=== PATIENT | male | born 1940 | race African-American/Black ===

== ENCOUNTER 2021-08-17 08:30 | Inpatient (IN) | payer MEDICARE ==
[2021-08-17 08:58] LABS: #Basophils 0.1 10x3/uL (0.0-0.2); #Eosinphils 0.1 10x3/uL (0.0-0.5); #Monocytes 0.9 10x3/uL (0.0-1.1); #Neutrophils 6.3 10x3/uL (1.5-8.4); %Basophils 0.6 % (0.0-2.0); %Eosinophils 1.3 % (0.0-6.0); %Lymphocytes 16.4 % (18.0-47.0); %Monocytes 9.7 % (0.0-10.0); %Neutrophils 71.8 % (40.0-75.0); Mean Corpuscular Volume 90.8 fl (81.2-95.1); Mean Platelet Volume 9.5 fl (7.4-10.4); Platelet Count 253 10x3/uL (150-450); RBC Distribution Width 14.6 % (11.5-14.5); White Blood Cell (WBC) Count 8.7 10x3/uL (3.5-10.5)
[2021-08-17 09:18] LABS: ALT (SGPT) 31 U/L (8-55); AST (SGOT) 23 U/L (5-34); Albumin 4.3 g/dL (3.4-4.8); Alkaline Phosphatase 78 U/L (40-110); Anion Gap 14 mmol/L (10-20); BUN (Urea Nitrogen) 12 mg/dL (8.4-25.7); Bilirubin, Total 0.5 mg/dL (0.2-1.2); Calc. Creatinine Clearance 0 mL/min (70-130); Carbon Dioxide 23 mmol/L (23-31); Chloride 107 mmol/L (98-107); Globulin 2.8 g/dL (2.4-3.5); Glucose 112 mg/dL (83-110); Potassium 4.7 mmol/L (3.5-5.1); Protein, Total 7.1 g/dL (5.8-8.1); Sodium 139 mmol/L (136-145)
[2021-08-17 09:37] LABS: CKMB 4.8 ng/mL (0-6.6)
[2021-08-17] MEDS ORDERED: Aspirin Chewable 81 MG TAB ONE (09:56)
[2021-08-17] MEDS ORDERED: Acetaminophen 650 MG Suppository PR PRN (11:50)
[2021-08-17] MEDS ORDERED: Nitroglycerin 0.4 MG TAB (25 Tab Bottle) SL PRN (11:50)
[2021-08-17] MEDS ORDERED: Ondansetron PF 4 MG/2 ML Vial IVP PRN (11:50)
[2021-08-17] MEDS ORDERED: Ondansetron ODT 4 MG TAB PO PRN (11:50)
[2021-08-17] MEDS ORDERED: Acetaminophen 325 MG TAB PO PRN (11:50)
[2021-08-17] MEDS ORDERED: Aspirin 325 MG TAB PO SCH (12:00)
[2021-08-17 12:12] VITALS: BMI 30.4
[2021-08-17 12:37] LABS: Troponin I 0.614 ng/mL (< 0.028)
[2021-08-17] MEDS ORDERED: FLU VACC QS2021-22(65YR UP)/PF 240 MCG/0.7 ML SYRINGE IM ONE (13:00)
[2021-08-17 15:43] LABS: SARS-CoV-2 NAA Rapid Test Not Detected (NotDetected)
[2021-08-17 15:59] LABS: Troponin I 0.989 ng/mL (< 0.028)
[2021-08-17] MEDS ORDERED: Communication Order-Pharmacy FS SCH (16:13)
[2021-08-17] MEDS ORDERED: Enoxaparin Sodium 100 MG/ML SYRINGE SC SCH (16:30)
[2021-08-17] MEDS ORDERED: Enoxaparin Sodium 80 MG/0.8 ML SYRINGE SC SCH (21:00)
[2021-08-18 04:40] LABS: #Basophils 0.1 10x3/uL (0.0-0.2); #Eosinphils 0.4 10x3/uL (0.0-0.5); #Monocytes 0.9 10x3/uL (0.0-1.1); #Neutrophils 5.8 10x3/uL (1.5-8.4); %Basophils 0.5 % (0.0-2.0); %Eosinophils 4.6 % (0.0-6.0); %Lymphocytes 24.2 % (18.0-47.0); %Monocytes 9.8 % (0.0-10.0); %Neutrophils 60.6 % (40.0-75.0); Hemoglobin 14.5 g/dL (13.5-17.5); Mean Corpuscular HGB CONC 33.4 g/dL (32.0-36.0); Mean Corpuscular Hemoglobin 30.1 pg (27.0-33.0); Mean Platelet Volume 9.8 fl (7.4-10.4); Platelet Count 248 10x3/uL (150-450); RBC Distribution Width 14.5 % (11.5-14.5); Red Blood Cell (RBC) Count 4.82 10x6/uL (4.32-5.72); White Blood Cell (WBC) Count 9.6 10x3/uL (3.5-10.5)
[2021-08-18 04:50] LABS: Anion Gap 14 mmol/L (10-20); BUN (Urea Nitrogen) 13 mg/dL (8.4-25.7); Calc. Creatinine Clearance 70 mL/min (70-130); Calcium 8.9 mg/dL (7.8-10.44); Carbon Dioxide 25 mmol/L (23-31); Cardiac Risk 4.4 (Less than 4.5); Chloride 107 mmol/L (98-107); Cholesterol 159 mg/dl (< 200 Desired); Glucose 106 mg/dL (83-110); HDL Cholesterol 36 mg/dL (>60 Neg Risk); LDL Cholesterol, Calculated 102 mg/dL; Potassium 4.6 mmol/L (3.5-5.1); Sodium 141 mmol/L (136-145); Triglycerides 107 mg/dL (Less than 150)
[2021-08-18] MEDS ORDERED: Aspirin Chewable 81 MG TAB PO SCH (05:45)
[2021-08-18] MEDS ORDERED: Sodium Chloride 0.9% 1,000 ML IV SCH (06:00)
[2021-08-18] MEDS ORDERED: Adenosine 6 MG/2 ML VIAL ONE (08:56)
[2021-08-18] MEDS ORDERED: Heparin 10,000 UNITS/ 10 ML VIAL ONE (08:56)
[2021-08-18] MEDS ORDERED: Nitroglycerin 50 MG/250 ML BOT 250 ML ONE (08:56)
[2021-08-18] MEDS ORDERED: Enoxaparin Sodium 100 MG/ML SYRINGE SC SCH (09:00)
[2021-08-18] MEDS ORDERED: Lidocaine 1% (PF) 30 ML VIAL ONE (09:03)
[2021-08-18 09:22] LABS: Hemoglobin 15.3 g/dL (13.5-17.5); Platelet Count 255 10x3/uL (150-450)
[2021-08-18] MEDS ORDERED: Midazolam HCl 2 mg/2 ml Vial ONE (10:14)
[2021-08-18] MEDS ORDERED: Fentanyl 100 MCG/2 ML VIAL ONE (10:14)
[2021-08-18] MEDS ORDERED: Atropine Sulfate 0.4 mg/1 ml Vial ONE (10:27)
[2021-08-18] MEDS ORDERED: Nitroglycerin 0.4 MG TAB (25 Tab Bottle) SL PRN (11:54)
[2021-08-18] MEDS ORDERED: Sodium Chloride 0.9% 200 ML IV PRN (11:54)
[2021-08-18] MEDS ORDERED: Acetaminophen/Codeine 30-300mg Tablet PO PRN ×2 (11:54)
[2021-08-18 18:45] VITALS: BP 141/73; TEMP 98.5
[2021-08-18] MEDS ORDERED: Atorvastatin Calcium 20 MG TAB PO SCH (21:00)
[2021-08-18] MEDS ORDERED: Metoprolol Tartrate 25 MG TAB PO SCH (21:00)
[2021-08-19] MEDS ORDERED: Aspirin Chewable 81 MG TAB PO SCH (09:00)
== END 2021-08-18 18:30 | disposition short-term general hospital (02) | DRG 282 ==
LOC: CSHERS 08:30 → CSHTELE 11:44 → OBSVTOIN 08-18 08:32
PROVIDERS: ADMIT Internal Medicine; ATTEND Physician Assistant
PROC: 4A023N7 Measurement of Cardiac Sampling and Pressure, Left Heart, Percutaneous Approach (ICD-10-PCS; principal; 2021-08-18)
PROC: B2111ZZ Fluoroscopy of Multiple Coronary Arteries using Low Osmolar Contrast (ICD-10-PCS; 2021-08-18)
PROC: B2151ZZ Fluoroscopy of Left Heart using Low Osmolar Contrast (ICD-10-PCS; 2021-08-18)
PROC: B5171ZZ Fluoroscopy of Left Subclavian Vein using Low Osmolar Contrast (ICD-10-PCS; 2021-08-18)
DX: I21.4 Non-ST elevation (NSTEMI) myocardial infarction (principal); Z20.822 Contact with and (suspected) exposure to COVID-19; I25.10 Atherosclerotic heart disease of native coronary artery without angina pectoris; I10 Essential (primary) hypertension; K21.9 Gastro-esophageal reflux disease without esophagitis; I45.10 Unspecified right bundle-branch block; R94.31 Abnormal electrocardiogram [ECG] [EKG]; E78.5 Hyperlipidemia, unspecified
CPT/HCPCS: 36415; 71045; 80048; 80053; 80061; 82553; 84484; 85025; 93005; 93010; 93306; 93459; 94760; 99152; G0378; J0153; J0461; J1644; J1650; J2001; J2250; J3010; U0002